=== PATIENT | female | born 1955 | race Caucasian/White ===

== ENCOUNTER 2018-05-31 07:43 | Day surgery (SDC) | payer BC ==
[2018-05-31] MEDS ORDERED: fentaNYL 100 MCG/2 ML SDV ONE (08:09)
[2018-05-31] MEDS ORDERED: Midazolam 1 MG/ML 2 ML SDV ONE (08:09)
[2018-05-31] MEDS ORDERED: Propofol 200 MG/20 ML SDV ONE (08:09)
[2018-05-31] MEDS: Lactated Ringers 1,000 ML IV SCH (08:13)
[2018-05-31 10:27] VITALS: BP 103/68
--- NOTE | 2018-05-31 11:26 | OR ---
DATE OF PROCEDURE: 05/31/2018 PREOPERATIVE DIAGNOSIS: Strong family history of colon cancer, father had colon cancer. POSTOPERATIVE DIAGNOSES: Small colon polyp 20 cm from the anal verge, strong family history of colon cancer and father had colon cancer. PROCEDURE PERFORMED: Colonoscopy to the cecum with biopsy, resection of small colon polyp 20 cm from the anal verge. ANESTHESIA: IV anesthesia with monitored anesthesia care. INDICATION: This 62-year-old white female is referred for a colonoscopy. She has a strong family history of colon cancer and that her father had colon cancer at age 53. She says her last colonoscopic exam was done about 10 years ago. I counseled her for the procedure including risks, alternatives and she gave her informed consent to proceed. DESCRIPTION OF PROCEDURE: The patient was placed in the left lateral decubitus position. IV anesthesia was administered by the Anesthesia Service. Time-out was held. A rectal exam was performed, which was unremarkable. The flexible video Olympus colonoscope was introduced through her anus, up her rectum, out her colon all way to the cecum. Once the cecum was reached, the scope was slowly withdrawn examining the mucosa throughout. No mucosal abnormalities were noted until we reached 20 cm from the anal verge. Here, a small polyp was seen which was removed with a couple bites of the biopsy forceps. The scope was brought back in the rectum, where it was retroflexed. The distal rectum appeared unremarkable. The scope was straightened and removed. She tolerated the procedure well. Isreal Purvis MD /[id number]
== END 2018-05-31 10:40 | disposition home or self-care (01) ==
LOC: JP.SDS 07:43
PROVIDERS: ATTEND Surgery
DX: Z12.11 Encounter for screening for malignant neoplasm of colon (principal); K63.5 Polyp of colon; E03.9 Hypothyroidism, unspecified; E66.9 Obesity, unspecified; Z68.27 Body mass index [BMI] 27.0-27.9, adult; Z79.82 Long term (current) use of aspirin; Z79.899 Other long term (current) drug therapy; Z86.010 Personal history of colon polyps; Z80.0 Family history of malignant neoplasm of digestive organs
CPT/HCPCS: 88305; J2250; J2704; J3010; J7120